=== PATIENT | female | born 1995 ===

== ENCOUNTER 2020-07-08 11:19 | Outpatient (CLI) | payer OTHER, MEDICAID ==
[2020-07-08 12:43] VITALS: BP 87/50
[2020-07-08] MEDS ORDERED: LACTATED RINGERS 500 ML IV ONE (13:00)
== END 2020-07-08 13:47 | disposition home or self-care (01) ==
LOC: TRG 11:19 → APU 11:20 → TRG 13:47
PROVIDERS: ATTEND Obstetrics & Gynecology
DX: O46.93 Antepartum hemorrhage, unspecified, third trimester (principal); Z3A.31 31 weeks gestation of pregnancy
CPT/HCPCS: 59025

== ENCOUNTER 2020-08-20 20:00 | Outpatient (CLI) | payer OTHER, MEDICAID ==
[2020-08-20 20:21] VITALS: BP 122/62
== END 2020-08-20 21:30 | disposition home or self-care (01) ==
LOC: TRG 20:00 → APU 20:01 → TRG 21:30
PROVIDERS: ATTEND Obstetrics & Gynecology
DX: O42.913 Preterm premature rupture of membranes, unspecified as to length of time between rupture and onset of labor, third trimester (principal); Z3A.37 37 weeks gestation of pregnancy
CPT/HCPCS: 36415; 59025; 84112

== ENCOUNTER 2020-08-22 09:48 | Inpatient (IN) | payer OTHER, MEDICAID ==
[2020-08-22] MEDS ORDERED: TERBUTALINE 1 MG/1 ML INJ SUB-Q PRN (12:29)
[2020-08-22] MEDS ORDERED: ePHEDrine SULFATE 50 MG/1 ML INJ IV PRN (12:29)
[2020-08-22] MEDS ORDERED: PROMETHAZINE 25 MG TAB PO PRN ×2 (12:29→16:25)
[2020-08-22] MEDS ORDERED: LIDOCAINE (2%) 20 MG/1 ML VIAL 20 ML MDV INFILTRATI NR (12:29)
[2020-08-22] MEDS ORDERED: ONDANSETRON 4 MG/2 ML INJ IV PRN ×2 (12:30→16:25)
[2020-08-22] MEDS ORDERED: OXYTOCIN DRIP 30 UNITS/500 ML BAG IV SCH ×2 (13:00→16:25)
[2020-08-22] MEDS: LACTATED RINGERS 1,000 ML IV SCH ×2 (13:09→14:22)
[2020-08-22 13:14] LABS: Hematocrit 33.5 % (30.3-42.9); Hemoglobin 11.5 gm/dl (10.1-14.3); Mean Corpuscular HGB Conc 34 % (30-34); Mean Corpuscular Volume 93 fl (79-97); Platelet Count 201 K/mm3 (140-440); Red Blood Count 3.61 M/mm3 (3.65-5.03); Red Cell Distribution Width 13.3 % (13.2-15.2)
[2020-08-22] MEDS ORDERED: MINERAL OIL 30 ML ORAL LIQD ONE (13:41)
--- NOTE | 2020-08-22 14:16 | History and Physical Report ---
History of Present Illness Date of examination: 08/22/20 Date of admission: 08/22/20 12:29 Chief complaint: contractions History of present illness: Pt is a 25 year old female HORACIO 09/04/20 at 38w1d who presents with painful contractions since 5 am and advanced cervical dilation. While being evaluated in triage, her cervix changed from 5 to 8 cm and her water broke. She denies vaginal bleeding. She has had care at [facility] since 10 wks complicated by glucose intolerance. She is GBS negative. Past History Past Medical History: no pertinent history Past Surgical History: no surgical history Family/Genetic History: diabetes, cancer Social history: no significant social history - Obstetrical History Expected Date of Delivery: 09/04/20 Actual Gestation: 38 Week(s) 1 Day(s) : 2 Para: 1 Hx # Term Pregnancies: 1 Number of Pregnancies: 0 Spontaneous Abortions: 0 Induced : 0 Number of Living Children: 1 Medications and Allergies Allergies Allergy/AdvReac Type Severity Reaction Status Date / Time No Known Allergies Allergy Unverified 07/08/20 12:03 Active Meds: Active Medications Ephedrine Sulfate (Ephedrine Sulfate 50 Mg/1 Ml Inj) 10 mg IV Q2M PRN PRN Reason: Hypotension Lactated Ringer's (Lactated Ringers) 1,000 mls @ 125 mls/hr IV DIRECT ALVINA Last Admin: 08/22/20 13:09 Dose: 125 mls/hr Documented by: Oxytocin/Sodium Chloride (Pitocin/Ns 30 Unit/500ml) 30 units in 500 mls @ 40 mls/hr IV TITR ALVINA; Protocol Lidocaine (Lidocaine (2%) 20 Mg/1 Ml Vial 20 Ml Mdv) 20 ml INFILTRATI ONCE NR Stop: 08/22/20 20:00 Mineral Oil (Mineral Oil 30 Ml Oral Liqd) 30 ml PO QHS PRN PRN Reason: Constipation Ondansetron HCl (Ondansetron 4 Mg/2 Ml Inj) 4 mg IV Q8H PRN PRN Reason: Nausea And Vomiting Promethazine HCl (Promethazine 25 Mg Tab) 25 mg PO Q6H PRN PRN Reason: Nausea And Vomiting Terbutaline Sulfate (Terbutaline 1 Mg/1 Ml Inj) 0.25 mg SUB-Q ONCE PRN PRN Reason: Hyperstimulation/Hypertonicity Stop: 08/22/20 23:59 Review of Systems All systems: negative - Vital Signs Vital signs: Vital Signs Pulse BP Pulse Ox 78 115/64 92 08/22/20 10:35 08/22/20 10:35 08/22/20 10:35 Temp Pulse Resp BP Pulse Ox 98.4 F 77 20 108/63 97 08/22/20 10:48 08/22/20 14:01 08/22/20 10:48 08/22/20 14:01 08/22/20 11:00 - Physical Exam Breasts: Positive: deferred Abdomen: Positive: soft (gravid ) Genitourinary (Female): Positive: normal external genitalia Uterus: Positive: enlarged (gravid ) Extremities: Positive: normal - Obstetrical FHR: auscultation normal Uterine Contraction Monitor Mode: External Cervical Dilatation: 8 (per RN ) Uterine Contraction Pattern: Regular Uterine Tone Measurement Phase: Resting Uterine Contraction Intensity: Strong/Firm Results Result Diagrams: 08/22/20 12:45 Abnormal lab results 08/22/20 Range/Units 12:45 WBC 15.7 H (4.5-11.0) K/mm3 RBC 3.61 L (3.65-5.03) M/mm3 All other labs normal. Assessment and Plan A: IUP at 38w1d Active labor SROM Glucose Intolerance GBS Negative P: Admit to labor and delivery Routine intrapartum care Closely monitor maternal and status
--- NOTE | 2020-08-22 14:17 | Procedure Note ---
OB Delivery Note - Delivery Date of Delivery: 08/22/20 Surgeon: TY POLO Estimated blood loss: 300cc - Vaginal Delivery presentation: vertex Delivery position: OA Intrapartum events: PROM->1hr before delivery, uterine atony (s/p Methergine 0.2 mg IM ) Delivery induction: none Delivery monitor: external FHT, external uterine Route of delivery: Delivery placenta: spontaneous Episiotomy: none Delivery laceration: 1st degree (repaired in standard fashion with 3-0 Vicryl ), other (Bilateral periurethral- hemostatic without repair ) Delivery repair: vicryl Anesthesia: local - Infant A at 1 minute: 8 at 5 minutes: 9 Gender: Female (2986g (6lb 9.3 oz) @ 1342 pm)
[2020-08-22] MEDS ORDERED: METHYLERGONOVINE MALEATE 0.2 MG/ML VIAL IM SCH (14:30)
[2020-08-22] MEDS ORDERED: BENZOCAINE/MENTHOL 20/0.5% TOP SPRAY 56 GM TP PRN (16:25)
[2020-08-22] MEDS ORDERED: PROMETHAZINE 25 MG RECT SUPP PR PRN (16:25)
[2020-08-22] MEDS ORDERED: HYDROcodone/ACETAMINOPHEN 5-325 MG TAB PO PRN (16:25)
[2020-08-22] MEDS ORDERED: WITCH HAZEL/ GLYCERIN PAD TP PRN (16:25)
[2020-08-22] MEDS ORDERED: diphenhydrAMINE 25 MG CAP PO PRN (16:25)
[2020-08-22] MEDS ORDERED: LANOLIN/ZINC/DIMETHICONE (LANSINOH) 7 GM TP PRN ×2 (16:25)
[2020-08-22] MEDS ORDERED: MAGNESIUM HYDROXIDE (MOM) ORAL LIQD UDC PO PRN (16:25)
[2020-08-22] MEDS: IBUPROFEN 600 MG TAB PO SCH ×2 (16:47→23:09)
[2020-08-22] MEDS ORDERED: FERROUS SULFATE 325 MG TAB PO SCH (22:00)
[2020-08-22] MEDS ORDERED: DOCUSATE SODIUM 100 MG CAP PO SCH (22:00)
[2020-08-22] MEDS ORDERED: MINERAL OIL 30 ML ORAL LIQD PO PRN (22:00)
[2020-08-23 03:16] LABS: Hematocrit 31.1 % (30.3-42.9); Hemoglobin 10.6 gm/dl (10.1-14.3)
[2020-08-23] MEDS ORDERED: DIPHtheria,PERTUSSIS(ACELL),TETANUS VACCINE/PF 0.5 ML VIAL IM ONE (06:00)
--- NOTE | 2020-08-23 08:16 | Progress Note ---
Assessment and Plan A: PPD1 s/p VSS Bottle feeding P: Discharge today Routine PP care Subjective - Subjective Date of service: 08/23/20 Principal diagnosis: Interval history: PPD1 s/p Patient reports: appetite normal, voiding normally, pain well controlled, ambulating normally Effie: doing well, bottle feeding Objective - Vital Signs Latest vital signs: Vital Signs Temp Pulse Resp BP BP Pulse Ox 08/22/20 20:43 98.6 F 78 18 100/59 94 08/22/20 16:27 99.1 F 70 19 110/56 97 08/22/20 14:01 77 108/63 08/22/20 11:00 76 97 08/22/20 10:55 74 94 08/22/20 10:50 82 99 08/22/20 10:48 98.4 F 20 08/22/20 10:45 79 99 08/22/20 10:40 80 97 08/22/20 10:35 78 115/64 92 Intake and Output 08/22/20 08/23/20 08/23/20 23:59 07:59 15:59 Intake Total 360 240 Balance 360 240 Intake: Oral 240 Intake, Free Water 360 Other: Total, Intake Amount 240 # Voids Void 2 - Exam Abdomen: Present: normal appearance, soft. Absent: distention, tenderness, guarding Uterus: Present: normal, firm, fundal height at umbilicus. Absent: bogginess, tenderness Extremities: Present: normal - Labs Labs: Abnormal lab results 08/22/20 Range/Units 12:45 WBC 15.7 H (4.5-11.0) K/mm3 RBC 3.61 L (3.65-5.03) M/mm3
--- NOTE | 2020-08-23 08:36 | Discharge Summary ---
Providers - Providers Date of Admission: 08/22/20 12:29 Date of discharge: 08/23/20 Attending physician: TY POLO 08/22/20 16:25 Consult to Dishwasher [CONS] Routine Reason For Exam: assistance with , SNS Primary care physician: TY POLO Hospitalization Reason for admission: active labor Delivery: Episiotomy: none Laceration: 1st degree (repaired ), other (bilateral periurethral, not repaired ) complications: none Discharge diagnosis: IUP at term delivered baby: female Hospital course: Patient presented for active labor. Progressed to . PP course uncomplicated. Condition at discharge: Good Disposition: DC-01 TO HOME OR SELFCARE Plan - Discharge Medications Prescriptions: Ferrous Sulfate [Feosol 325 MG tab] 325 mg PO QDAY #30 tablet Ibuprofen [Motrin] 600 mg PO Q6H PRN #60 tablet PRN Reason: Pain - Provider Discharge Summary Activity: routine, no sex for 6 weeks, no heavy lifting 4 weeks, no strenuous exercise Diet: routine Instructions: routine Additional instructions: [] Smoking cessation referral if applicable(refer to patient education folder for contact #) [] Refer to [facility]'s [facility] Booklet Call your doctor immediately for: * Fever > 100.5 * Heavy vaginal bleeding ( >1 pad per hour) * Severe persistent headache * Shortness of breath * Reddened, hot, painful area to leg or breast * Drainage or odor from incision. * Keep incision clean and dry at all times and follow doctor's instructions regarding bathing/showering - Follow up plan Follow up: THUY COOPER CNM [Advanced Practice Nurse] - 14 Days (Please call office to schedule appointment in 2-4 weeks.)
[2020-08-23 12:33] VITALS: BP 97/52
[2020-08-23] MEDS ORDERED: MEASLES, MUMPS & RUBELLA 12,500 UNIT/0.5 ML VACCINE SUB-Q ONE (14:18)
== END 2020-08-23 11:02 | disposition home or self-care (01) | DRG 807 ==
LOC: TRG 09:48 → APU 09:51 → LD 12:29 → TRG 13:01 → OB 15:36
PROVIDERS: ADMIT Obstetrics & Gynecology; ATTEND Obstetrics & Gynecology
PROC: 10E0XZZ Delivery of Products of Conception, External Approach (ICD-10-PCS; principal; 2020-08-22)
PROC: 0HQ9XZZ Repair Perineum Skin, External Approach (ICD-10-PCS; 2020-08-22)
DX: O42.02 Full-term premature rupture of membranes, onset of labor within 24 hours of rupture (principal); Z37.0 Single live birth; O62.2 Other uterine inertia; Z3A.38 38 weeks gestation of pregnancy; O70.0 First degree perineal laceration during delivery; Z20.822 Contact with and (suspected) exposure to COVID-19
CPT/HCPCS: 36415; 59025; 84112; 85014; 85018; 85027; 86592; 86850; 86900; 86901; 96360; 96361; 96365; 96366; 96368; 96372; G0378; J2210; J2590; J7120; U0003